=== PATIENT | female | born 1960 | race Two or more races ===

== ENCOUNTER 2018-02-13 08:56 | Outpatient (CLI) | payer OTHER ==
[~2018-02-13 08:56] MED LIST: CLARINEX5 MG/TAB PO; CLONAZEPAM0.5 MG; NEURONTIN300 MG; SINGULAIR4 MG; TESSALON200 MG PO; TUSSI PRES-B L120 M1 PO; TUSSIONEX PENNKI5 ML PO; XYZAL5 MG PO; [UNRECOGNIZED DRUG - OTHER] IH
== END 2018-02-13 09:02 | disposition home or self-care (01) ==
LOC: SONOGRAMA 08:56
DX: E04.1 Nontoxic single thyroid nodule (principal)

== ENCOUNTER 2018-08-18 11:34 | Outpatient (CLI) | payer OTHER | END 2018-08-18 11:43 | disposition home or self-care (01) | LOC: RAD 501 11:34 | DX: M54.2 Cervicalgia (principal); M54.5 Low back pain; M54.6 Pain in thoracic spine ==